=== PATIENT | male | born 1935 | race Caucasian/White ===

== ENCOUNTER → 2017-02-03 | Day surgery (SDC) | payer MEDICARE ==
[~2017-02-03] VITALS: Ht 185.4 cm; Wt 107.5 kg
[~2017-02-03] MED LIST: AMLO-110 PO; ASPI-428 PO; ATOR80TA PO; CARV12.52 PO; DUTA0.5C PO; GLIM4TAB2 PO; HYZ/10015 PO; LIDOCAINE HCL 2% 2 ML VIAL (20MG/ML) ONE; LPT/40 PO; PROPOFOL IV EMULSION 10 MG/ML 20 ML VIAL IV ONE; SITA50TA3 PO; SODIUM CHLORIDE 0.9% 500ML 500 ML IV ONE; TAMS0.4C38 PO
[2017-02-03 10:23] VITALS: TEMP 36.6
[2017-02-03 10:30] VITALS: Ht 185.4 cm; Wt 107.5 kg
--- NOTE | 2017-02-03 11:27 | Endo History and Physical ---
History & Physical Date of Service: Feb 03, 2017. Chief Complaint: ACUTE GASTRIC ULCER, HIATAL HERNIA Referring Physician: DR MICHELL FUENTES History of Present Illness episode food impaction at [facility] Abnl UGIS Past Surgical History Hx Cardiac Surgery: Yes (TRIPLE BYPASS) Hx Internal Defibrillator: No Hx Pacemaker: No Hx Abdominal Surgery: Yes (BILATERAL HERNIA REPAIR LOWER ABDOMEN, APPENDECTOMY) Hx of Implantable Prosthesis: No Hx Post-Op Nausea and Vomiting: No Hx Cancer Surgery: No Hx Thoracic Surgery: No Hx Orthopedic: No Hx Urinary Tract Surgery: No Family History None Social History Smoking Status: Former Smoker Hx Substance Use: No Hx Alcohol Use: No Allergies Coded Allergies: Lisinopril (Unverified Allergy, Mild, COUGH, 02/03/17) Current Medications Reported Home Medications Medications Dose Route/Sig Max Daily Dose Days Date Category Ecotrin Low Strength (Aspirin) 81 Mg Tab 1 Tab PO DAILY 90 02/03/17 Reported Flomax (Tamsulosin Hcl) 0.4 Mg Cap 1 Cap PO DAILY 30 02/03/17 Reported Norvasc (Amlodipine Besylate) 5 Mg Tab 5 Mg PO DAILY 02/03/17 Reported Januvia (Sitagliptin) 50 Mg Tab 50 Mg PO DAILY 02/03/17 Reported Avodart (Dutasteride) 0.5 Mg Cap 1 Cap PO DAILY 30 02/03/17 Reported Lipitor (Atorvastatin) 40 Mg Tab 40 Mg PO DAILY 02/03/17 Reported Glimepiride 4 Mg Tab 1 Tab PO BID 90 02/03/17 Reported Hyzaar 25MG/100MG (HCTZ/Losartan Potassium) Tab 1 Tab PO DAILY 02/03/17 Reported Coreg (Carvedilol) 12.5 Mg Tab 1 Tab PO BID 02/03/17 Reported Vital Signs Weight (Kilograms): 107.5 Height (Feet): 6 Height (Inches): 1 Date Time Temp Pulse Resp B/P (MAP) Pulse Ox O2 Delivery O2 Flow Rate FiO2 02/03/17 10:23 36.6 82 16 152/77 (102) 96 Room Air Physical Exam General Appearance: no apparent distress Respiratory/Chest: Auscultation: breath sounds normal Cardiovascular: Heart Auscultation: RRR Abdomen: Inspection & Palpation: soft Assessment and Plan EGD
--- NOTE | 2017-02-03 12:04 | GI REPORT ---
Procedure Date: 02/03/2017 11:34 AM Procedure: Upper GI endoscopy Indications: Dysphagia, Abnormal UGI series Medicines: See the Anesthesia note for documentation of the administered medications Complications: No immediate complications. Estimated Blood Loss: Estimated blood loss: none. Procedure: Pre-Anesthesia Assessment: - ASA Grade Assessment: III - A patient with severe systemic disease. After obtaining informed consent, the endoscope was passed under direct vision. Throughout the procedure, the patient's blood pressure, pulse, and oxygen saturations were monitored continuously. The On-site loaner was introduced through the mouth, and advanced to the second part of duodenum. The upper GI endoscopy was accomplished without difficulty. The patient tolerated the procedure well. Findings: There were tertiary waves in the body of the esophagus. The esophagus was mildly tortuous. There was a moderate ring at the GE junction. The GE junction is at 40 cm. There was no esophagitis. There was a small hiatal hernia. The stomach was normal. No ulcers were seen. There was patchy erythema in the duodenal bulb. The remainder of the duodenum was normal. A guidewire was placed and the scope was withdrawn. Dilation was performed at the gastroesophageal junction with a Savary dilator with no resistance at 16 mm. There was an adequate tear post dilation. Biopsies taken from stomach to check for Hp. Impression: - Ring, dilated. Hiatal hernia. Duodenitis. Recommendation: - Discharge patient to home. Once daily PPI. Liquids only today. Minimize NSAIDs. Hold aspirin for 3 days, Katarina Murrell M.D. Katarina Murrell MD 02/03/2017 12:04:18 PM This report has been signed electronically. Note Initiated On: 02/03/2017 11:34 AM I attest to the content of the Intraoperative Record and orders documented therein, exceptions below
--- NOTE | 2017-02-03 12:15 | Discharge Instructions ---
Endoscopy Patient Instructions Date / Procedure(s) Performed Feb 03, 2017. EGD Allergy Information Coded Allergies: Lisinopril (Unverified Allergy, Mild, COUGH, 02/03/17) Discharge Date / Findings Feb 03, 2017. Ring, hiatal hernia, duodenitis Medication Instructions Stopped Medication(s): LAST TOOK ASPIRIN 02/02/17 Provider Instructions Activity Restrictions - No exercising or heavy lifting for 24 hours. - Do not drink alcohol the day of the procedure. - Do not drive a car or operate machinery until the day after the procedure. - Do not make any important decisions or sign important papers in 24 hours after the procedure. Following Day: - Return to full activity which may include returning to work/school. Diet Liquids only today. Then adv diet as tolerated. Treatment For Common After Affects For mild abdominal pain, bloating, or excessive gas: - Rest - Eat lightly - Lie on right side Follow-Up Information Follow-up with DR MICHELL FUENTES as scheduled Anesthesia Information What You Should Know You have had a procedure that required some medicine to reduce anxiety and discomfort. This treatment is called moderate sedation. After receiving the treatment, you may be sleepy, but you will be able to breathe on your own. The effects of the treatment may last for several hours. Follow these instructions along with Activity/Diet recommendations noted above: * Do NOT do anything where dizziness or clumsiness would be dangerous. * Rest quietly at home today, then you can be up and about tomorrow. * Have a responsible person stay with you the rest of today. * You may have had an I.V. today. If so, you may take the dressing off later today. Recommendations Call your doctor if: * Trouble breathing * Continuous vomiting for more than 24 hours * Temperature above 101 degrees * Severe abdominal pain or bloating * Pain not relieved by pain medicine ordered * There is increased drainage or redness from any incision * A large amount of rectal bleeding greater than 2-3 tablespoons. (If you had a polyp/s removed or have hemorrhoids, a small amount of blood - from the rectum is to be expected.) * You have any unanswered questions or concerns. IN THE EVENT OF A SERIOUS EMERGENCY, GO TO THE NEAREST EMERGENCY ROOM Your discharge instructions were prepared by provider Katarina Rosales. Patient Instructions Signature Page Nabil Liang Patient (or Guardian) Signature/Date: I have read and understand the instructions given to me by my caregivers. Caregiver/RN/Doctor Signature/Date: The above-named patient and/or guardian has received patient instructions on this date. + Original Patient Signature Page (only) stays with chart. Please make copy for patient.
[2017-02-03 12:22] VITALS: BP 151/92; PULSE 77; O2SAT 96
--- NOTE | 2017-02-03 12:38 | Anesthesiology Progress Note ---
Anesthesia Post Op Note Date & Time Feb 03, 2017 at 12:38 Vital Signs Pain Intensity: 0 Vital Signs Past 12 Hours Date Time Temp Pulse Resp B/P (MAP) Pulse Ox O2 Delivery O2 Flow Rate FiO2 02/03/17 12:22 77 18 151/92 (111) 96 Room Air 02/03/17 12:15 72 18 137/82 (100) 95 Room Air 02/03/17 12:02 77 18 137/70 (92) 96 Room Air 02/03/17 11:58 84 18 117/68 (84) 94 Room Air 02/03/17 10:23 36.6 82 16 152/77 (102) 96 Room Air Notes Mental Status: alert / awake / arousable, participated in evaluation Pt Amnestic to Procedure: Yes Nausea / Vomiting: adequately controlled Pain: adequately controlled Airway Patency, RR, SpO2: stable & adequate BP & HR: stable & adequate Hydration State: stable & adequate Anesthetic Complications: no major complications apparent
== END | disposition home or self-care (01) ==
LOC: C.GI 09:51
PROVIDERS: ATTEND Internal Medicine Gastroenterology
DX: K25.3 Acute gastric ulcer without hemorrhage or perforation (principal); K29.70 Gastritis, unspecified, without bleeding; K44.9 Diaphragmatic hernia without obstruction or gangrene; R13.10 Dysphagia, unspecified; Z95.5 Presence of coronary angioplasty implant and graft; Z90.89 Acquired absence of other organs; Z87.891 Personal history of nicotine dependence; Z79.82 Long term (current) use of aspirin; I25.2 Old myocardial infarction; I25.10 Atherosclerotic heart disease of native coronary artery without angina pectoris; I10 Essential (primary) hypertension; K21.9 Gastro-esophageal reflux disease without esophagitis; E11.9 Type 2 diabetes mellitus without complications